=== PATIENT | male | born 1935 | race Caucasian/White ===

== ENCOUNTER → 2017-02-05 13:31 | Outpatient (CLI) | payer MEDICARE, BC ==
[2014-07-05 00:06] VITALS: BMI 21.5
[~2017-02-05 13:31] MED LIST: BAYER CHEWABLE81 MG PO; CYCLOBENZAPRINE10 MG PO; HYDROCODON-ACE1 EAC7 PO; MULTIPLE VITAMI1 TA1 PO; ZANAFLEX4 MG PO
== END | disposition home or self-care (01) ==
LOC: D.MRI 13:31
DX: M25.372 Other instability, left ankle (principal)

== ENCOUNTER → 2018-07-05 09:35 | Outpatient (CLI) | payer MEDICARE, BC ==
[2014-07-05 00:06] VITALS: BMI 21.5
== END | disposition home or self-care (01) ==
LOC: D.US 09:35
DX: R60.0 Localized edema (principal)